=== PATIENT | female | born 1960 | race Caucasian/White ===

== ENCOUNTER 2017-06-12 16:59 | Inpatient (IN) | payer MEDICARE, OTHER ==
[~2017-06-12] VITALS: Ht 157.5 cm; Wt 56.8 kg
[~2017-06-12 16:59] MED LIST: LYR75C PO; MORP100S12 PO; PROM25TA14 PO
[2017-06-12] MEDS ORDERED: ondansetron/PF 4mg/2ml inj IV ONE (17:10)
[2017-06-12] MEDS ORDERED: normal saline 1000ML IV soln IVB ONE ×2 (17:10→22:15)
[2017-06-12 17:21] LABS: BASOPHILS % (AUTO) 0.2 % (0-1); EOSINOPHILS % (AUTO) 0.2 % (0-6); HEMATOCRIT 44.6 % (35.0-45.0); LYMPHOCYTES # (AUTO) 0.8 X10'3 (1.1-4.8); LYMPHOCYTES % (AUTO) 16.1 % (21-51); MEAN CORPUSCULAR HEMOGLOBIN 30.3 PG (27.0-31.0); MEAN CORPUSCULAR HGB CONC 33.7 % (33.0-36.5); MEAN CORPUSCULAR VOLUME 89.8 FL (78-98); MEAN PLATELET VOLUME 8.6 FL (7.4-10.4); MONOCYTES # (AUTO) 0.6 X10'3 (0-0.9); MONOCYTES % (AUTO) 12.1 % (2-12); NEUTROPHILS # (AUTO) 3.6 X10'3 (1.8-7.7); NEUTROPHILS % (AUTO) 71.4 % (42-75); PLATELET COUNT 258 X10'3 (140-440); RED BLOOD COUNT 4.96 X10'6 (4.20-5.60); RED CELL DISTRIBUTION WIDTH 13.6 % (11.5-14.5)
[2017-06-12 17:34] LABS: AMMONIA < 10 UMOL/L (11-32)
[2017-06-12 17:36] LABS: ALANINE AMINOTRANSFERASE 68 U/L (12-78); ALBUMIN 3.4 G/DL (3.4-5.0); ALKALINE PHOSPHATASE 89 IU/L (46-116); ANION GAP 14 (8-16); ASPARTATE AMINO TRANSFERASE 58 U/L (10-37); BILIRUBIN,TOTAL 0.5 MG/DL (0.1-1.0); BLOOD UREA NITROGEN 39 MG/DL (7-18); BUN/CREATININE RATIO 21.7 (6.6-38.0); CALCIUM 7.9 MG/DL (8.5-10.1); CHLORIDE 103 MMOL/L (99-107); GLUCOSE 126 MG/DL (70-104); LIPASE 92 U/L (73-393); POTASSIUM 3.2 MMOL/L (3.5-5.1); SODIUM 145 MMOL/L (135-145); TOTAL CARBON DIOXIDE 27.6 MMOL/L (24-32); TOTAL PROTEIN 6.7 G/DL (6.4-8.2); eGFR 29 ML/MIN
[2017-06-12] MEDS: HYDROmorphone 1 mg/ml syringe IV PRN ×2 (17:37→22:29)
[2017-06-12 17:39] LABS: LACTIC SEPSIS 3.1 MMOL/L (0.4-2.0)
[2017-06-12 18:49] LABS: ETHANOL < 0.010 GM/DL (0.0-0.010)
[2017-06-12] MEDS ORDERED: LIDOcaine 2% 10ml TOPICAL JELLY (Urojet) MM ONE (19:05)
[2017-06-12] MEDS: ringers solution, lactated 1000ml IV soln IV ONE (19:50)
[2017-06-12] MEDS ORDERED: ondansetron/PF 4mg/2ml inj IV PRN (20:15)
[2017-06-12] MEDS ORDERED: acetaminophen 650mg rectal suppository RC PRN (20:15)
[2017-06-12] MEDS ORDERED: metoprolol tartrate 1mg/ml inj IV ONE (22:15)
[2017-06-12 23:15] VITALS: BP 155/66
[2017-06-12] MEDS: Potassium Cl inj 20 MEQ in normal saline 1000ml 990 ML IV SCH (23:15)
[2017-06-12] MEDS ORDERED: acetaminophen 1,000mg/100ml IV 100 ML IV PRN (23:50)
[2017-06-12] MEDS ORDERED: piperacillin/tazo 3.375gm/50ml 100 ML IV ONE (23:59)
[2017-06-13] VITALS (13 sets, daily range): BP systolic 100–150; BP diastolic 54–79
[2017-06-13] MEDS: piperacillin/tazo 3.375gm/50ml 50 ML IV SCH ×5 (00:25→20:00)
[2017-06-13] MEDS ORDERED: potassium Cl 20mEq in NS 1,000 ML IV ONE (02:23)
[2017-06-13] MEDS: Potassium Cl inj 20 MEQ in normal saline 1000ml 990 ML IV SCH ×3 (03:21→19:30)
[2017-06-13 05:24] LABS: BASOPHILS % (AUTO) 0.1 % (0-1); EOSINOPHILS % (AUTO) 0 % (0-6); HEMATOCRIT 40.8 % (35.0-45.0); HEMOGLOBIN 14.2 g/dl (12.0-16.0); LYMPHOCYTES # (AUTO) 0.9 X10'3 (1.1-4.8); MEAN CORPUSCULAR HGB CONC 34.7 % (33.0-36.5); MEAN CORPUSCULAR VOLUME 89.3 FL (78-98); MONOCYTES # (AUTO) 0.2 X10'3 (0-0.9); MONOCYTES % (AUTO) 6.6 % (2-12); NEUTROPHILS # (AUTO) 2.1 X10'3 (1.8-7.7); NEUTROPHILS % (AUTO) 65.3 % (42-75); PLATELET COUNT 173 X10'3 (140-440); RED BLOOD COUNT 4.57 X10'6 (4.20-5.60); RED CELL DISTRIBUTION WIDTH 13.3 % (11.5-14.5); WHITE BLOOD COUNT 3.2 X10'3 (4.5-11.0)
[2017-06-13 05:51] LABS: ALANINE AMINOTRANSFERASE 63 U/L (12-78); ALBUMIN 2.9 G/DL (3.4-5.0); ALBUMIN/GLOBULIN RATIO 0.9 (1.1-1.5); ALKALINE PHOSPHATASE 121 IU/L (46-116); ANION GAP 9 (8-16); ASPARTATE AMINO TRANSFERASE 67 U/L (10-37); BILIRUBIN,TOTAL 0.5 MG/DL (0.1-1.0); BLOOD UREA NITROGEN 39 MG/DL (7-18); BUN/CREATININE RATIO 27.9 (6.6-38.0); CALCIUM 7.7 MG/DL (8.5-10.1); CHLORIDE 110 MMOL/L (99-107); GLUCOSE 118 MG/DL (70-104); SODIUM 146 MMOL/L (135-145); TOTAL CARBON DIOXIDE 26.6 MMOL/L (24-32); TOTAL PROTEIN 6.3 G/DL (6.4-8.2); eGFR 39 ML/MIN
[2017-06-13] MEDS: morphine 2 MG/ML inj. syringe IV PRN ×5 (06:37→23:54)
[2017-06-13] MEDS ORDERED: propofol inj 20 ML IV ONE (14:24)
[2017-06-13] MEDS ORDERED: midazolam 2 mg/2 ml injection ONE (14:24)
[2017-06-13] MEDS ORDERED: rocuronium 10mg/ml inj IV ONE (14:24)
[2017-06-13] MEDS ORDERED: fentaNYL/PF 50MCG/1 ML 2ML syringe ONE (14:24)
[2017-06-13] MEDS ORDERED: LIDOcaine 1%/PF (10mg/ml) 5ml vial ONE (14:24)
[2017-06-13] MEDS ORDERED: proCHLORperazine 10 MG/2 ml inj IV PRN (14:35)
[2017-06-13] MEDS ORDERED: sevoflurane 250ml liquid IH ONE (14:35)
[2017-06-13] MEDS ORDERED: ondansetron/PF 4mg/2ml inj IV PRN (14:35)
[2017-06-13] MEDS ORDERED: ringers solution, lacted 1,000 ML IV SCH (14:35)
[2017-06-13] MEDS ORDERED: meperidine/PF 25mg/ml syringe IV PRN ×2 (14:35)
[2017-06-13] MEDS ORDERED: morphine 2 MG/ML inj. syringe IV PRN ×2 (14:35)
[2017-06-13] MEDS ORDERED: ketorolac trometh. 30mg/ml inj. ONE (16:06)
[2017-06-13] MEDS: meperidine/PF 25mg/ml syringe IV PRN ×2 (16:48→16:57)
[2017-06-14] MEDS: piperacillin/tazo 3.375gm/50ml 50 ML IV SCH ×4 (02:03→21:32)
[2017-06-14] MEDS: morphine 2 MG/ML inj. syringe IV PRN ×8 (02:04→19:11)
[2017-06-14 03:00] VITALS: BP 122/69
[2017-06-14] MEDS: Potassium Cl inj 20 MEQ in normal saline 1000ml 990 ML IV SCH ×4 (03:19→18:40)
[2017-06-14 05:04] LABS: BASOPHILS % (AUTO) 0.1 % (0-1); EOSINOPHILS % (AUTO) 0.1 % (0-6); HEMOGLOBIN 12.4 g/dl (12.0-16.0); LYMPHOCYTES % (AUTO) 13.7 % (21-51); MEAN CORPUSCULAR HEMOGLOBIN 30.6 PG (27.0-31.0); MEAN CORPUSCULAR HGB CONC 33.6 % (33.0-36.5); MEAN CORPUSCULAR VOLUME 91.1 FL (78-98); MONOCYTES # (AUTO) 0.5 X10'3 (0-0.9); MONOCYTES % (AUTO) 6.7 % (2-12); NEUTROPHILS # (AUTO) 5.6 X10'3 (1.8-7.7); NEUTROPHILS % (AUTO) 79.4 % (42-75); PLATELET COUNT 148 X10'3 (140-440); RED BLOOD COUNT 4.06 X10'6 (4.20-5.60); RED CELL DISTRIBUTION WIDTH 13.5 % (11.5-14.5); WHITE BLOOD COUNT 7.1 X10'3 (4.5-11.0)
[2017-06-14 05:26] LABS: TOTAL CELLS COUNTED 100
[2017-06-14 05:27] LABS: LARGE PLATELETS FEW; PLATELET ESTIMATE NORMAL
[2017-06-14 05:39] LABS: ALANINE AMINOTRANSFERASE 53 U/L (12-78); ALBUMIN 2.3 G/DL (3.4-5.0); ALBUMIN/GLOBULIN RATIO 0.7 (1.1-1.5); ALKALINE PHOSPHATASE 70 IU/L (46-116); ANION GAP 7 (8-16); ASPARTATE AMINO TRANSFERASE 60 U/L (10-37); BILIRUBIN,TOTAL 0.5 MG/DL (0.1-1.0); BLOOD UREA NITROGEN 26 MG/DL (7-18); CHLORIDE 114 MMOL/L (99-107); GLUCOSE 105 MG/DL (70-104); POTASSIUM 4.3 MMOL/L (3.5-5.1); SODIUM 148 MMOL/L (135-145); TOTAL CARBON DIOXIDE 27.1 MMOL/L (24-32); TOTAL PROTEIN 5.6 G/DL (6.4-8.2); eGFR 57 ML/MIN
[2017-06-14 06:00] VITALS: BP 146/79
[2017-06-14] MEDS ORDERED: FLU VACC QS2017-18 36MOS UP/PF 60 MCG/0.5 ML SYRINGE IMVAC ONE (10:00)
[2017-06-14 11:00] VITALS: BP 129/66
[2017-06-14] MEDS ORDERED: hydrOXYzine 25 MG tablet PO PRN (11:15)
[2017-06-14 15:00] VITALS: BP 130/73
[2017-06-14 19:00] VITALS: BP 134/77
[2017-06-14] MEDS ORDERED: diphenhydrAMINE 50 mg/ml inj IV PRN (19:05)
[2017-06-14 23:00] VITALS: BP 140/60
[2017-06-15] VITALS (7 sets, daily range): BP systolic 126–185; BP diastolic 68–97
[2017-06-15] MEDS ORDERED: ketorolac trometh. 30mg/ml inj. IV ONE (01:30)
[2017-06-15] MEDS: piperacillin/tazo 3.375gm/50ml 50 ML IV SCH ×3 (02:13→14:16)
[2017-06-15] MEDS: Potassium Cl inj 20 MEQ in normal saline 1000ml 990 ML IV SCH ×3 (02:13→15:00)
[2017-06-15] MEDS: LIDOcaine 5% patch TP PRN (02:16)
[2017-06-15 05:08] LABS: BASOPHILS % (AUTO) 0.1 % (0-1); EOSINOPHILS # (AUTO) 0.1 X10'3 (0-0.9); EOSINOPHILS % (AUTO) 1.1 % (0-6); HEMATOCRIT 35.4 % (35.0-45.0); HEMOGLOBIN 11.9 g/dl (12.0-16.0); LYMPHOCYTES # (AUTO) 1.3 X10'3 (1.1-4.8); LYMPHOCYTES % (AUTO) 17.8 % (21-51); MEAN CORPUSCULAR HEMOGLOBIN 30.4 PG (27.0-31.0); MEAN CORPUSCULAR HGB CONC 33.5 % (33.0-36.5); MEAN PLATELET VOLUME 8.6 FL (7.4-10.4); MONOCYTES # (AUTO) 0.4 X10'3 (0-0.9); MONOCYTES % (AUTO) 5.9 % (2-12); NEUTROPHILS # (AUTO) 5.7 X10'3 (1.8-7.7); NEUTROPHILS % (AUTO) 75.1 % (42-75); PLATELET COUNT 156 X10'3 (140-440); RED BLOOD COUNT 3.89 X10'6 (4.20-5.60); RED CELL DISTRIBUTION WIDTH 13.2 % (11.5-14.5); WHITE BLOOD COUNT 7.5 X10'3 (4.5-11.0)
[2017-06-15 05:38] LABS: ALANINE AMINOTRANSFERASE 76 U/L (12-78); ALBUMIN 2.5 G/DL (3.4-5.0); ALBUMIN/GLOBULIN RATIO 0.7 (1.1-1.5); ALKALINE PHOSPHATASE 64 IU/L (46-116); ANION GAP 9 (8-16); ASPARTATE AMINO TRANSFERASE 93 U/L (10-37); BILIRUBIN,TOTAL 0.4 MG/DL (0.1-1.0); BLOOD UREA NITROGEN 18 MG/DL (7-18); BUN/CREATININE RATIO 22.5 (6.6-38.0); CALCIUM 8.1 MG/DL (8.5-10.1); CHLORIDE 112 MMOL/L (99-107); GLUCOSE 83 MG/DL (70-104); POTASSIUM 4.4 MMOL/L (3.5-5.1); SODIUM 147 MMOL/L (135-145); TOTAL CARBON DIOXIDE 25.9 MMOL/L (24-32); TOTAL PROTEIN 5.9 G/DL (6.4-8.2); eGFR 74 ML/MIN
[2017-06-15] MEDS: lactobacillus rhamnosus 10,000 MMU CELLS/CAPSULE PO SCH ×2 (07:30→16:59)
[2017-06-15] MEDS: morphine 2 MG/ML inj. syringe IV PRN (12:03)
[2017-06-15] MEDS ORDERED: atenolol 50mg tablet PO SCH (14:35)
[2017-06-15] MEDS ORDERED: morphine 5 MG/ML injection IV PRN ×3 (19:27→20:05)
[2017-06-15] MEDS: atenolol 50mg tablet PO SCH (20:33)
[2017-06-16] VITALS: BP 174/98
[2017-06-16] MEDS: Potassium Cl inj 20 MEQ in normal saline 1000ml 990 ML IV SCH ×2 (00:10→20:48)
[2017-06-16 05:43] LABS: BASOPHILS % (AUTO) 0.1 % (0-1); EOSINOPHILS % (AUTO) 0.2 % (0-6); HEMATOCRIT 43.9 % (35.0-45.0); LYMPHOCYTES # (AUTO) 1.2 X10'3 (1.1-4.8); LYMPHOCYTES % (AUTO) 11.3 % (21-51); MEAN CORPUSCULAR HEMOGLOBIN 30.6 PG (27.0-31.0); MEAN CORPUSCULAR HGB CONC 34.2 % (33.0-36.5); MEAN CORPUSCULAR VOLUME 89.4 FL (78-98); MEAN PLATELET VOLUME 9.3 FL (7.4-10.4); MONOCYTES # (AUTO) 0.4 X10'3 (0-0.9); MONOCYTES % (AUTO) 3.6 % (2-12); NEUTROPHILS # (AUTO) 9.3 X10'3 (1.8-7.7); NEUTROPHILS % (AUTO) 84.8 % (42-75); PLATELET COUNT 197 X10'3 (140-440); RED BLOOD COUNT 4.91 X10'6 (4.20-5.60); RED CELL DISTRIBUTION WIDTH 13.1 % (11.5-14.5); WHITE BLOOD COUNT 10.9 X10'3 (4.5-11.0)
[2017-06-16 06:10] LABS: ALANINE AMINOTRANSFERASE 75 U/L (12-78); ALBUMIN 2.8 G/DL (3.4-5.0); ALBUMIN/GLOBULIN RATIO 0.7 (1.1-1.5); ALKALINE PHOSPHATASE 96 IU/L (46-116); ANION GAP 13 (8-16); ASPARTATE AMINO TRANSFERASE 71 U/L (10-37); BILIRUBIN,TOTAL 0.7 MG/DL (0.1-1.0); BLOOD UREA NITROGEN 12 MG/DL (7-18); CHLORIDE 102 MMOL/L (99-107); CREATININE 0.63 MG/DL (0.40-0.90); GLUCOSE 122 MG/DL (70-104); POTASSIUM 3.2 MMOL/L (3.5-5.1); SODIUM 141 MMOL/L (135-145); TOTAL CARBON DIOXIDE 25.8 MMOL/L (24-32); TOTAL PROTEIN 6.9 G/DL (6.4-8.2); eGFR > 90 ML/MIN
[2017-06-16 07:00] VITALS: BP 197/96
[2017-06-16] MEDS: lactobacillus rhamnosus 10,000 MMU CELLS/CAPSULE PO SCH ×2 (07:28→17:42)
[2017-06-16] MEDS: atenolol 50mg tablet PO SCH ×2 (07:30→20:10)
[2017-06-16 11:00] VITALS: BP 157/98
[2017-06-16] MEDS ORDERED: morphine 10mg/ml inj. IV PRN (11:21)
[2017-06-16] MEDS ORDERED: magnesium 4gm in 100ml NS 100 ML IV PRN (12:10)
[2017-06-16] MEDS ORDERED: potassium Cl 40MEQ/NS 500ml 500 ML IV PRN ×2 (12:10)
[2017-06-16] MEDS ORDERED: magnesium 2GM in 50ml NS 50 ML IV PRN (12:10)
[2017-06-16] MEDS ORDERED: magnesium Cl slow-release 64mg tablet PO PRN (12:10)
[2017-06-16] MEDS ORDERED: potassium Cl 20 mEq SR tablet PO PRN ×2 (12:10)
[2017-06-16] MEDS ORDERED: hydrALAZINE 20mg/ml inj. IV PRN (13:25)
[2017-06-16] MEDS: morphine 5 MG/ML injection IV PRN ×4 (15:55→22:10)
[2017-06-16] MEDS: LIDOcaine 5% patch TP PRN (15:58)
[2017-06-16 19:00] VITALS: BP 156/82
[2017-06-16] MEDS ORDERED: diatr meglu/diatrizoate 30ml oral sol.-(3 dose) bottle PO SCH (21:00)
[2017-06-17] VITALS: BP 122/66
[2017-06-17] MEDS: morphine 5 MG/ML injection IV PRN ×3 (00:18→05:56)
[2017-06-17 05:18] LABS: BASOPHILS % (AUTO) 0.1 % (0-1); EOSINOPHILS # (AUTO) 0.1 X10'3 (0-0.9); EOSINOPHILS % (AUTO) 0.5 % (0-6); HEMATOCRIT 43.2 % (35.0-45.0); HEMOGLOBIN 14.8 g/dl (12.0-16.0); MEAN CORPUSCULAR HEMOGLOBIN 30.3 PG (27.0-31.0); MEAN CORPUSCULAR HGB CONC 34.2 % (33.0-36.5); MEAN CORPUSCULAR VOLUME 88.6 FL (78-98); MEAN PLATELET VOLUME 8.6 FL (7.4-10.4); MONOCYTES # (AUTO) 1.4 X10'3 (0-0.9); MONOCYTES % (AUTO) 14.4 % (2-12); NEUTROPHILS # (AUTO) 6.5 X10'3 (1.8-7.7); PLATELET COUNT 196 X10'3 (140-440); RED BLOOD COUNT 4.88 X10'6 (4.20-5.60); WHITE BLOOD COUNT 10.1 X10'3 (4.5-11.0)
[2017-06-17 05:49] LABS: ALANINE AMINOTRANSFERASE 54 U/L (12-78); ALBUMIN 2.3 G/DL (3.4-5.0); ALBUMIN/GLOBULIN RATIO 0.6 (1.1-1.5); ALKALINE PHOSPHATASE 69 IU/L (46-116); ANION GAP 11 (8-16); ASPARTATE AMINO TRANSFERASE 36 U/L (10-37); BILIRUBIN,TOTAL 0.5 MG/DL (0.1-1.0); BLOOD UREA NITROGEN 18 MG/DL (7-18); BUN/CREATININE RATIO 28.6 (6.6-38.0); CALCIUM 7.6 MG/DL (8.5-10.1); CHLORIDE 100 MMOL/L (99-107); CREATININE 0.63 MG/DL (0.40-0.90); GLUCOSE 122 MG/DL (70-104); MAGNESIUM 1.4 MG/DL (1.5-2.4); SODIUM 139 MMOL/L (135-145); TOTAL CARBON DIOXIDE 28.2 MMOL/L (24-32); eGFR > 90 ML/MIN
[2017-06-17 07:43] VITALS: BP 135/65
[2017-06-17] MEDS: lactobacillus rhamnosus 10,000 MMU CELLS/CAPSULE PO SCH ×2 (08:39→17:29)
[2017-06-17] MEDS: atenolol 50mg tablet PO SCH ×2 (08:40→20:00)
[2017-06-17] MEDS: HYDROcodone/acetaminophen 10/325mg tab PO PRN ×4 (08:41→21:38)
[2017-06-17] MEDS ORDERED: ipratropium/albuterol 3ml nebule NEB PRN (11:25)
[2017-06-17 12:00] VITALS: BP 111/55
[2017-06-17] MEDS: LIDOCAINE 1% IV PRN ×2 (14:04→19:13)
[2017-06-17] MEDS: [UNRECOGNIZED DRUG - OTHER] IV PRN ×2 (14:04→19:13)
[2017-06-17] MEDS: POTASSIUM CL IV PRN ×2 (14:04→19:13)
[2017-06-17] MEDS: Potassium Cl inj 20 MEQ in normal saline 1000ml 990 ML IV SCH (16:48)
[2017-06-17 19:00] VITALS: BP 116/49
[2017-06-17] MEDS: budesonide 0.5mg/2ml UD nebule IH SCH (20:29)
[2017-06-17] MEDS: ipratropium/albuterol 3ml nebule NEB SCH (20:29)
[2017-06-18] VITALS: BP 115/51
[2017-06-18] MEDS: HYDROcodone/acetaminophen 10/325mg tab PO PRN ×4 (01:29→15:32)
[2017-06-18] MEDS: Potassium Cl inj 20 MEQ in normal saline 1000ml 990 ML IV SCH (01:55)
[2017-06-18 02:22] LABS: ALANINE AMINOTRANSFERASE 43 U/L (12-78); ALBUMIN 2.1 G/DL (3.4-5.0); ALBUMIN/GLOBULIN RATIO 0.7 (1.1-1.5); ALKALINE PHOSPHATASE 55 IU/L (46-116); ANION GAP 9 (8-16); ASPARTATE AMINO TRANSFERASE 25 U/L (10-37); BILIRUBIN,TOTAL 0.3 MG/DL (0.1-1.0); BLOOD UREA NITROGEN 17 MG/DL (7-18); BUN/CREATININE RATIO 23.3 (6.6-38.0); CALCIUM 7.3 MG/DL (8.5-10.1); CHLORIDE 105 MMOL/L (99-107); CREATININE 0.73 MG/DL (0.40-0.90); GLUCOSE 131 MG/DL (70-104); MAGNESIUM 1.9 MG/DL (1.5-2.4); POTASSIUM 3.6 MMOL/L (3.5-5.1); SODIUM 139 MMOL/L (135-145); TOTAL CARBON DIOXIDE 24.8 MMOL/L (24-32); TOTAL PROTEIN 5.1 G/DL (6.4-8.2); eGFR 82 ML/MIN
[2017-06-18 02:28] LABS: BASOPHILS % (AUTO) 0.2 % (0-1); EOSINOPHILS # (AUTO) 0.2 X10'3 (0-0.9); EOSINOPHILS % (AUTO) 1.8 % (0-6); HEMATOCRIT 35.8 % (35.0-45.0); HEMOGLOBIN 12.3 g/dl (12.0-16.0); LYMPHOCYTES % (AUTO) 23.3 % (21-51); MEAN CORPUSCULAR HEMOGLOBIN 30.5 PG (27.0-31.0); MEAN CORPUSCULAR HGB CONC 34.3 % (33.0-36.5); MEAN CORPUSCULAR VOLUME 88.8 FL (78-98); MEAN PLATELET VOLUME 8.3 FL (7.4-10.4); MONOCYTES # (AUTO) 1.3 X10'3 (0-0.9); MONOCYTES % (AUTO) 15.4 % (2-12); NEUTROPHILS # (AUTO) 5.2 X10'3 (1.8-7.7); NEUTROPHILS % (AUTO) 59.3 % (42-75); PLATELET COUNT 190 X10'3 (140-440); RED BLOOD COUNT 4.04 X10'6 (4.20-5.60); RED CELL DISTRIBUTION WIDTH 13.3 % (11.5-14.5); WHITE BLOOD COUNT 8.8 X10'3 (4.5-11.0)
[2017-06-18] MEDS: ipratropium/albuterol 3ml nebule NEB SCH ×3 (02:30→14:22)
[2017-06-18] MEDS: lactobacillus rhamnosus 10,000 MMU CELLS/CAPSULE PO SCH (07:28)
[2017-06-18 07:30] VITALS: BP 104/54
[2017-06-18] MEDS: atenolol 50mg tablet PO SCH (07:32)
[2017-06-18] MEDS ORDERED: predniSONE 20 mg tablet PO SCH (08:00)
[2017-06-18] MEDS: budesonide 0.5mg/2ml UD nebule IH SCH (08:00)
[2017-06-18 11:30] VITALS: BP 104/54
[2017-06-18] MEDS ORDERED: IPRA4AER IH (16:42)
[2017-06-18] MEDS ORDERED: FLUT1BLS3 INH (16:42)
== END 2017-06-18 18:20 | disposition home or self-care (01) | DRG 336 ==
LOC: ER 17:00 → ED HOLD 20:13 → EDBEDREQ 21:53 → EDBEDREQSVC 22:14 → PCU 3S 23:00 → SUR 3N 06-15 17:41
PROVIDERS: ADMIT Internal Medicine; ATTEND Family Medicine
PROC: 0D9670Z Drainage of Stomach with Drainage Device, Via Natural or Artificial Opening (ICD-10-PCS; 2017-06-12)
PROC: 0DN80ZZ Release Small Intestine, Open Approach (ICD-10-PCS; principal; 2017-06-13 14:40)
DX: K56.50 Intestinal adhesions [bands], unspecified as to partial versus complete obstruction (principal); K50.90 Crohn's disease, unspecified, without complications; N17.9 Acute kidney failure, unspecified; J44.1 Chronic obstructive pulmonary disease with (acute) exacerbation; F41.9 Anxiety disorder, unspecified; G89.29 Other chronic pain; I73.00 Raynaud's syndrome without gangrene; M79.7 Fibromyalgia; R00.0 Tachycardia, unspecified; B19.20 Unspecified viral hepatitis C without hepatic coma; Z98.891 History of uterine scar from previous surgery; Z88.8 Allergy status to other drugs, medicaments and biological substances; Z79.899 Other long term (current) drug therapy; Z87.891 Personal history of nicotine dependence
CPT/HCPCS: 36415; 71045; 74176; 80053; 80320; 82140; 82948; 83605; 83690; 83735; 85025; 87040; 87070; 93005; 94640; 94760; 96361; 96374; 97110; 97116; 97161; 97530; 97535; 99285; A7000; C1758; J0360; J1170; J1200; J1885; J2001; J2175; J2250; J2270; J2405; J2543; J2704; J3010; J3475; J3480; J3490; J7030; J7120; J7626; Q0177